=== PATIENT | female | born 1950 | race Caucasian/White ===

== ENCOUNTER 2016-08-16 11:23 | Emergency (ER) | payer MEDICARE ==
[~2016-08-16] VITALS: Ht 165.1 cm; Wt 60.8 kg
[2016-08-16 11:39] VITALS: Ht 165.1 cm; Wt 60.8 kg
[2016-08-16] MEDS ORDERED: FLUT9.9S NASAL (12:50)
[2016-08-16] MEDS ORDERED: MED4DP PO (12:50)
[2016-08-16] MEDS ORDERED: BENZ100C70 PO (12:50)
[2016-08-16] MEDS ORDERED: PSEU30TA38 PO (12:50)
--- NOTE | 2016-08-16 14:36 | ERD ---
DATE OF SERVICE: HISTORY OF PRESENT ILLNESS: The patient is a 65-year-old female complaining of sore throat for the last 3 weeks. The patient states that she just finished a 1-week course of amoxicillin. She has be en complaining of a productive cough, runny nose. She took Robitussin and Cold-EEZE with Claritin w ith no alleviation. She states she has continued sore throat, no sick contacts, no fevers, no neck pain, no vomiting, no shortness of breath. PAST MEDICAL HISTORY: Denies. ALLERGIES: ZOFRAN. PAST SURGICAL HISTORY: Appendectomy. SOCIAL HISTORY: Smokes 1/2 a pack a day. REVIEW OF SYSTEMS: A 12-point review of systems was done. Refer to HPI for positives, all other sy stems negative. PHYSICAL EXAMINATION: VITAL SIGNS: Temperature is 98.3, pulse 93, blood pressure 120/82, respiratory rate 16, O2 saturati on 97% on room air. Pain intensity 8/10. GENERAL: The patient is well-appearing, well-nourished, no acute distress. HEART: Regular rate and rhythm. No murmurs, clicks, rubs or gallops. No S3 or S4. CHEST: Clear to auscultation bilaterally. There are no rales, wheezes or rhonchi. HEENT: Atraumatic. Conjunctivae are pink. Pupils equal, round, and reactive to light. There is no s cleral icterus. Tympanic membranes clear bilaterally. Oropharynx clear. No nystagmus or photophobia . ABDOMEN: Soft, nontender and nondistended. Good bowel sounds. No rebound or guarding. No gross sander tonitis. No gross organomegaly or masses. No Houser sign or McBurney point tenderness. NECK: C-spine is soft and supple. There is no meningismus. There is no cervical lymphadenopathy. No JVD. No bruits. No goiter. SKIN: There is no apparent rash or petechia. The skin is warm and dry. DIAGNOSIS: Upper respiratory infection. MEDICAL DECISION MAKING: I have low suspicion for meningitis or sepsis, low suspicion for pneumonia , low suspicion for bacterial HEENT infection. The patient's exam is likely associated with viral e tiology given that she just finished antibiotics which did not alleviate her symptoms and patient's vital signs are stable. DISCHARGE: The patient is discharged stable. The patient is given prescription for Flonase, Medrol Dosepak, Sudafed, and Tessalon, told to follow up with primary care within 1 to 2 days for reevalua tion. The patient was told if symptoms progress or worsen to return to the ER. All other questions answered at time of discharge. Discharge summary given at the time of departure. Patient understo od and complied with plan. Dictated By: HALEY CONWAY PA for SAMY KIM/KRISTYN Conf#: [id number] DID#: [id number]
== END 2016-08-16 13:07 | disposition home or self-care (01) ==
LOC: FTE 11:23
DX: J06.9 Acute upper respiratory infection, unspecified (principal); F17.210 Nicotine dependence, cigarettes, uncomplicated
CPT/HCPCS: 99284

== ENCOUNTER 2017-04-21 11:10 | Emergency (ER) | payer OTHER ==
[~2017-04-21] VITALS: Wt 62.1 kg
[~2017-04-21 11:10] MED LIST: BENZ100C70 PO; FLUT9.9S NASAL; MED4DP PO; PSEU30TA38 PO
[2017-04-21] MEDS ORDERED: IBUPROFEN 600 MG TAB PO ONE (12:00)
[2017-04-21] MEDS ORDERED: HYDROCODONE/APAP (5/325) TAB PO ONE (12:00)
--- NOTE | 2017-04-21 13:10 | RADRPT ---
PROCEDURE: RIGHT knee x-ray CLINICAL INDICATION: Fall/trauma. TECHNIQUE: AP, tunnel and lateral views of the knee were obtained. COMPARISON: None FINDINGS: The soft tissues and bony elements are normal. The joint space effusion is noted. IMPRESSION: 1. A small joint space effusion is identified. 2. A fracture is not identified. RPTAT:AAJJ Physician Eva Date Time Electronically viewed and signed by Saul Cruz Physician on 04/21/2017 13:10 PAVAN/
[2017-04-21] MEDS ORDERED: IBUP400T22 PO (13:50)
[2017-04-21] MEDS ORDERED: HYDR-906 PO (13:50)
--- NOTE | 2017-04-21 13:54 | ERD ---
ER Documentation Chief Complaint Chief Complaint r. knee pain s/p slip and fall yest HPI 66-year-old female slipped on a wet floor and twisted her right knee last night. She has persistent pain. She denies any redness or fevers. She has restricted range of motion due to pain but no calf swelling or deficits. ROS All systems reviewed and are negative except as per history of present illness. Medications Home Meds Active Scripts Hydrocodone/Acetaminophen ([place] 5-325 Tablet) 1 Each Tablet, 1 TAB PO Q6H Y for PAIN, #12 TAB Prov:RUBEN GOMES MD 04/21/17 Ibuprofen* (Motrin*) 400 Mg Tab, 400 MG PO Q6, #20 TAB Prov:RUBEN GOMES MD 04/21/17 Methylprednisolone* (Medrol* DOSE PACK) 4 Mg/Dose-Pack Tab.ds.pk, 4 MG PO . DIRECTED, #1 PACKET Prov:DARREN CONWAY PA-C 08/16/16 Benzonatate* (Tessalon Perle*) 100 Mg Capsule, 100 MG PO Q8H Y for COUGH, #30 CAP Prov:DARREN CONWAY PA-C 08/16/16 Pseudoephedrine Hcl* (Pseudoephedrine Hcl*) 30 Mg Tablet, 30 MG PO Q6 Y for CONGESTION, #30 TAB Prov:DARREN CONWAY PA-C 08/16/16 Fluticasone Propionate (Flonase Allergy Relief) 9.9 Ml [place].susp, 1 SPRAY NASAL DAILY, #1 BOTTLE TO EACH NOSTRIL Prov:DARREN CONWAY PA-C 08/16/16 Reported Medications [None] No Conflict Check 05/29/10 Allergies Allergies: Coded Allergies: Oyster Shell (Verified Allergy, Mild, 05/29/10) Uncoded Allergies: MSG (Allergy, Mild, 05/29/10) PMhx/Soc History of Surgery: No Anesthesia Reaction: No Hx Neurological Disorder: No Hx Respiratory Disorders: No Hx Cardiac Disorders: No Hx Psychiatric Problems: No Hx Miscellaneous Medical Probl: No Hx Alcohol Use: Yes Hx Substance Use: No Hx Tobacco Use: No Physical Exam Vitals Vital Signs Date Time Temp Pulse Resp B/P Pulse Ox O2 Delivery O2 Flow Rate FiO2 04/21/17 11:14 98.4 79 16 131/90 98 Physical Exam Const: [], Not ill-appearing. Head: Atraumatic Eyes: Normal Conjunctiva ENT: Normal External Ears, Nose and Mouth. Neck: Full range of motion..~ No meningismus. Resp: Clear to auscultation bilaterally Cardio: Regular rate and rhythm, no murmurs Abd: Soft, non tender, non distended. Normal bowel sounds Skin: No petechiae or rashes Back: No midline or flank tenderness Ext: No cyanosis, or edema mild generalized tenderness the right knee joint without deformities, no erythema or calf swelling or Homans sign. No appreciable deficits. She has limited range of motion likely due to pain. Neur: Awake and alert Psych: Normal Mood and Affect Results 24 hrs Current Medications Medications (Trade) Dose Ordered Sig/Conchis Route PRN Reason Start Time Stop Time Status Last Admin Dose Admin Ibuprofen (Motrin) 600 mg ONCE ONCE PO 04/21/17 12:00 04/21/17 12:02 DC 04/21/17 12:35 Acetaminophen/ Hydrocodone Bitart ([place] (5/325)) 1 tab ONCE ONCE PO 04/21/17 12:00 04/21/17 12:02 DC 04/21/17 12:35 Procedures/MDM X-ray right knee 4V patella interpreted by me: Bones: [No fracture] Joints: [No dislocation] Foreign body: [None]. Impression normal right knee x-ray Administered crutches administered right knee immobilizer and was neurovascular intact after knee immobilizer. Patient has signs and symptoms of right knee sprain without evidence of fracture , dislocation, DVT, cellulitis. She will discharged home with orthopedic and primary care follow-up and return precautions. Departure Diagnosis: Primary Impression: Knee injury Encounter type: initial encounter Laterality: right Qualified Code: S89.91XA - Injury of right knee, initial encounter Condition: Stable Patient Instructions: Knee Sprain Referrals: INDRA TODD MD,IN BENNY SANDOVAL [facility] Hours: Mon-Fri 9:00 AM - 5:00 PM Additional Instructions: X-ray read as normal. Likely sprain. See orthopedist for pain next week. Recheck sooner for fevers, redness, new symptoms. RUBEN GOMES MD Apr 21, 2017 13:54
--- NOTE | 2017-04-21 13:54 | ERD ---
ER Documentation Chief Complaint Chief Complaint r. knee pain s/p slip and fall yest HPI 66-year-old female slipped on a wet floor and twisted her right knee last night. She has persistent pain. She denies any redness or fevers. She has restricted range of motion due to pain but no calf swelling or deficits. ROS All systems reviewed and are negative except as per history of present illness. Medications Home Meds Active Scripts Hydrocodone/Acetaminophen ([place] 5-325 Tablet) 1 Each Tablet, 1 TAB PO Q6H Y for PAIN, #12 TAB Prov:RUBEN GOMES MD 04/21/17 Ibuprofen* (Motrin*) 400 Mg Tab, 400 MG PO Q6, #20 TAB Prov:RUBEN GOMES MD 04/21/17 Methylprednisolone* (Medrol* DOSE PACK) 4 Mg/Dose-Pack Tab.ds.pk, 4 MG PO . DIRECTED, #1 PACKET Prov:DARREN CONWAY PA-C 08/16/16 Benzonatate* (Tessalon Perle*) 100 Mg Capsule, 100 MG PO Q8H Y for COUGH, #30 CAP Prov:DARREN CONWAY PA-C 08/16/16 Pseudoephedrine Hcl* (Pseudoephedrine Hcl*) 30 Mg Tablet, 30 MG PO Q6 Y for CONGESTION, #30 TAB Prov:DARREN CONWAY PA-C 08/16/16 Fluticasone Propionate (Flonase Allergy Relief) 9.9 Ml [place].susp, 1 SPRAY NASAL DAILY, #1 BOTTLE TO EACH NOSTRIL Prov:DARREN CONWAY PA-C 08/16/16 Reported Medications [None] No Conflict Check 05/29/10 Allergies Allergies: Coded Allergies: Oyster Shell (Verified Allergy, Mild, 05/29/10) Uncoded Allergies: MSG (Allergy, Mild, 05/29/10) PMhx/Soc History of Surgery: No Anesthesia Reaction: No Hx Neurological Disorder: No Hx Respiratory Disorders: No Hx Cardiac Disorders: No Hx Psychiatric Problems: No Hx Miscellaneous Medical Probl: No Hx Alcohol Use: Yes Hx Substance Use: No Hx Tobacco Use: No Physical Exam Vitals Vital Signs Date Time Temp Pulse Resp B/P Pulse Ox O2 Delivery O2 Flow Rate FiO2 04/21/17 11:14 98.4 79 16 131/90 98 Physical Exam Const: [], Not ill-appearing. Head: Atraumatic Eyes: Normal Conjunctiva ENT: Normal External Ears, Nose and Mouth. Neck: Full range of motion..~ No meningismus. Resp: Clear to auscultation bilaterally Cardio: Regular rate and rhythm, no murmurs Abd: Soft, non tender, non distended. Normal bowel sounds Skin: No petechiae or rashes Back: No midline or flank tenderness Ext: No cyanosis, or edema mild generalized tenderness the right knee joint without deformities, no erythema or calf swelling or Homans sign. No appreciable deficits. She has limited range of motion likely due to pain. Neur: Awake and alert Psych: Normal Mood and Affect Results 24 hrs Current Medications Medications (Trade) Dose Ordered Sig/Conchis Route PRN Reason Start Time Stop Time Status Last Admin Dose Admin Ibuprofen (Motrin) 600 mg ONCE ONCE PO 04/21/17 12:00 04/21/17 12:02 DC 04/21/17 12:35 Acetaminophen/ Hydrocodone Bitart ([place] (5/325)) 1 tab ONCE ONCE PO 04/21/17 12:00 04/21/17 12:02 DC 04/21/17 12:35 Procedures/MDM X-ray right knee 4V patella interpreted by me: Bones: [No fracture] Joints: [No dislocation] Foreign body: [None]. Impression normal right knee x-ray Administered crutches administered right knee immobilizer and was neurovascular intact after knee immobilizer. Patient has signs and symptoms of right knee sprain without evidence of fracture , dislocation, DVT, cellulitis. She will discharged home with orthopedic and primary care follow-up and return precautions. Departure Diagnosis: Primary Impression: Knee injury Encounter type: initial encounter Laterality: right Qualified Code: S89.91XA - Injury of right knee, initial encounter Condition: Stable Patient Instructions: Knee Sprain Referrals: INDRA TODD MD,IN BENNY SANDOVAL [facility] Hours: Mon-Fri 9:00 AM - 5:00 PM Additional Instructions: X-ray read as normal. Likely sprain. See orthopedist for pain next week. Recheck sooner for fevers, redness, new symptoms. RUBEN GOMES MD Apr 21, 2017 13:54
== END 2017-04-21 14:03 | disposition home or self-care (01) ==
LOC: FTE 11:10
DX: S89.91XA Unspecified injury of right lower leg, initial encounter (principal); W01.0XXA Fall on same level from slipping, tripping and stumbling without subsequent striking against object, initial encounter; Y92.9 Unspecified place or not applicable
CPT/HCPCS: 73564